=== PATIENT | male | born 1975 | race Caucasian/White ===

== ENCOUNTER → 2018-12-14 | Outpatient (CLI) | payer OTHER | LOC: MHCPAIN 13:47 | DX: G89.29 Other chronic pain (principal); M47.817 Spondylosis without myelopathy or radiculopathy, lumbosacral region; M54.16 Radiculopathy, lumbar region; M53.3 Sacrococcygeal disorders, not elsewhere classified; M96.1 Postlaminectomy syndrome, not elsewhere classified | CPT/HCPCS: G0463 ==

== ENCOUNTER → 2018-12-15 | Outpatient (CLI) | payer OTHER | LOC: MHCPAIN 08:03 | DX: M47.817 Spondylosis without myelopathy or radiculopathy, lumbosacral region (principal); M54.16 Radiculopathy, lumbar region | CPT/HCPCS: J1100; Q9967 ==

== ENCOUNTER → 2019-01-02 | Outpatient (CLI) | payer OTHER | LOC: MHCPAIN 07:47 | DX: G89.29 Other chronic pain (principal); M47.817 Spondylosis without myelopathy or radiculopathy, lumbosacral region; M54.16 Radiculopathy, lumbar region; M53.3 Sacrococcygeal disorders, not elsewhere classified; M96.1 Postlaminectomy syndrome, not elsewhere classified | CPT/HCPCS: G0463 ==

== ENCOUNTER 2019-04-07 05:59 | Day surgery (SDC) | payer OTHER ==
[~2019-04-07] VITALS: Ht 185.4 cm; Wt 93.3 kg
[2019-04-07 06:21] VITALS: BP 123/91; PULSE 74; TEMP 97.6
[2019-04-07] MEDS ORDERED: CARAFATE 1GM1 G PO (06:27)
[2019-04-07] MEDS ORDERED: PRILOSEC 20MG20 MG PO (06:27)
[2019-04-07] MEDS ORDERED: ROBAXIN 75750 MG/TAB PO (06:27)
[2019-04-07] MEDS ORDERED: ULTRAM 50MG TAB50 MG PO (06:28)
[2019-04-07] MEDS ORDERED: FORTESTA10 MG/0.5 TP (06:29)
[2019-04-07] MEDS ORDERED: LYRICA 50MG CAP50 MG PO (06:29)
[2019-04-07] MEDS ORDERED: FLONASEALLERGY NS (06:30)
[2019-04-07] MEDS ORDERED: ZYRTEC 10MG10 MG (06:30)
--- NOTE | 2019-04-07 06:32 | NUR ---
TO RM AT 0605- CALL LIGHT IN REACH AT BEDSIDE.
[2019-04-07 07:55] VITALS: BP 112/80; PULSE 67; TEMP 97.5
[2019-04-07 08:10] VITALS: BP 116/83; PULSE 65
[2019-04-07 08:25] VITALS: BP 123/90; PULSE 59
[2019-04-07 08:40] VITALS: BP 124/93; PULSE 68
--- NOTE | 2019-04-07 08:50 | NUR ---
Pt returned to [facility] at 0755 via cart and ambulated with SBA to recliner in bay. Pt drowsy but oriented. present in room . VSS-see flowsheet. Allowed to rest at that time. Pt since tolerated ice chips, pudding and jello. IV removed and pressure dressing applied to right hand site. Discharge teaching completed, pt and verbalized understanding. Ambulated with pt to exit of facility for dc home in private vehicle with to drive.
== END 2019-04-07 08:50 | disposition home or self-care (01) ==
LOC: SDCO 05:59
DX: K29.30 Chronic superficial gastritis without bleeding (principal); Z90.49 Acquired absence of other specified parts of digestive tract; Z88.8 Allergy status to other drugs, medicaments and biological substances; Z87.891 Personal history of nicotine dependence
CPT/HCPCS: OP; J2250; J3010; J7030

== ENCOUNTER → 2019-07-18 | Outpatient (CLI) | payer OTHER ==
[~2019-07-18] MED LIST: CARAFATE 1GM1 G PO; FLONASEALLERGY NS; FORTESTA10 MG/0.5 TP; LYRICA 50MG CAP50 MG PO; PRILOSEC 20MG20 MG PO; ROBAXIN 75750 MG/TAB PO; ULTRAM 50MG TAB50 MG PO; ZYRTEC 10MG10 MG
== END ==
LOC: MHCPAIN 12:39
DX: G89.29 Other chronic pain (principal); M47.817 Spondylosis without myelopathy or radiculopathy, lumbosacral region; M54.16 Radiculopathy, lumbar region; M53.3 Sacrococcygeal disorders, not elsewhere classified; M96.1 Postlaminectomy syndrome, not elsewhere classified
CPT/HCPCS: G0463

== ENCOUNTER → 2019-07-27 | Outpatient (CLI) | payer OTHER | LOC: MHCPAIN 12:23 | DX: M47.817 Spondylosis without myelopathy or radiculopathy, lumbosacral region (principal); M54.16 Radiculopathy, lumbar region | CPT/HCPCS: J1100; Q9967 ==

== ENCOUNTER → 2019-08-16 | Outpatient (CLI) | payer OTHER | LOC: MHCPAIN 11:01 | DX: G89.29 Other chronic pain (principal); M47.817 Spondylosis without myelopathy or radiculopathy, lumbosacral region; M54.16 Radiculopathy, lumbar region; M53.3 Sacrococcygeal disorders, not elsewhere classified | CPT/HCPCS: G0463 ==

== ENCOUNTER → 2019-08-24 | Outpatient (CLI) | payer OTHER | LOC: MHCPAIN 09:01 | DX: M47.817 Spondylosis without myelopathy or radiculopathy, lumbosacral region (principal); M54.16 Radiculopathy, lumbar region | CPT/HCPCS: J1100; Q9967 ==

== ENCOUNTER → 2019-09-11 | Outpatient (CLI) | payer OTHER | LOC: MHCPAIN 10:52 | DX: G89.29 Other chronic pain (principal); M47.817 Spondylosis without myelopathy or radiculopathy, lumbosacral region; M54.16 Radiculopathy, lumbar region; M53.3 Sacrococcygeal disorders, not elsewhere classified; M96.1 Postlaminectomy syndrome, not elsewhere classified | CPT/HCPCS: G0463 ==

== ENCOUNTER → 2019-09-28 | Outpatient (CLI) | payer OTHER | LOC: MHCPAIN 08:52 | DX: M47.817 Spondylosis without myelopathy or radiculopathy, lumbosacral region (principal); M53.3 Sacrococcygeal disorders, not elsewhere classified; M54.16 Radiculopathy, lumbar region | CPT/HCPCS: G0260; J1040; Q9967 ==

== ENCOUNTER → 2019-12-26 | Outpatient (CLI) | payer OTHER | LOC: MHCPAIN 08:58 | DX: M47.817 Spondylosis without myelopathy or radiculopathy, lumbosacral region (principal); M54.16 Radiculopathy, lumbar region | CPT/HCPCS: G0463 ==

== ENCOUNTER → 2020-01-04 | Outpatient (CLI) | payer OTHER | LOC: MHCPAIN 14:09 | DX: M53.3 Sacrococcygeal disorders, not elsewhere classified (principal) | CPT/HCPCS: J1100; Q9967 ==

== ENCOUNTER → 2020-01-24 | Outpatient (CLI) | payer OTHER | LOC: MHCPAIN 08:39 | DX: M47.816 Spondylosis without myelopathy or radiculopathy, lumbar region (principal); M96.1 Postlaminectomy syndrome, not elsewhere classified | CPT/HCPCS: G0463 ==